=== PATIENT | female | born 1995 | race Caucasian/White ===

== ENCOUNTER 2016-09-03 20:58 | Emergency (ER) | payer OTHER, BC ==
--- NOTE | 2016-09-03 22:09 | RAD ---
INDICATION: Headache since hitting head on cabinet 3 nights earlier. COMPARISON: None. TECHNIQUE: Contiguous axial sections of the brain were obtained from the skull base to the vertex without contrast. FINDINGS: Incidental note is made of a septum pellucidum cavum and does not appear to cause any obstructive effect of the anterior horns of the ventricles. Otherwise the ventricles, cisterns and sulci are within normal limits. The lester-white matter differentiation is adequately maintained and there is no sulcal effacement. No significant focal abnormality or mass effect is present. There is no evidence for intracranial hemorrhage. No significant focal osseous abnormality is present. The visualized portion of the paranasal sinuses and mastoid air cells appear clear. IMPRESSION: No CT evidence of calvarial fracture or acute intracranial hemorrhage.
--- NOTE | 2016-09-03 22:14 | ED ---
Head Injury - HPI Summary HPI Summary: 21 female presents accompanied by twin sister with complaints of intermittent headache since 08/30/16. Patient states she had nausea on that subsided earlier today however headache has not improved. She admits to some photophobia and hitting her head again today. Denies visual disturbances, nausea and vomiting. Has not taken any medications. No PMHx besides allergy to sulfites. Denies weakness, LOC and memory loss/AMS. Has however has had some trouble concentrating. Denies any ecchymosis, edema or hematomas at this time. - History Of Current Complaint Chief Complaint: EDHeadInjury Stated Complaint: HEAD INJURY-HEADACHE Time Seen by Provider: 09/03/16 21:09 Hx Obtained From: Patient Hx Last Menstrual Period: 10/21/15 Mechanism Of Injury: Blunt Trauma Onset/Duration: Started Days Ago, Traumatic, Still Present Onset of Pain: Days Severity Currently: Moderate Severity Initially: Moderate Pain Intensity: 7 Pain Scale Used: 0-10 Numeric Location of Head Injury: Diffuse Location: Diffuse Character: Throbbing, Pressure, Aching Aggravating Factor(s): Movement Alleviating Factor(s): Rest Associated Signs And Symptoms: Other: - photophobia - Allergies/Home Medications Allergies/Adverse Reactions: Allergies Allergy/AdvReac Type Severity Reaction Status Date / Time Sulfites Allergy See Comment Verified 11/13/15 20:00 PMH/Surg Hx/FS Hx/Imm Hx Endocrine/Hematology History: Denies: Hx Anticoagulant Therapy, Hx Diabetes, Hx Thyroid Disease Cardiovascular History: Denies: Hx Congestive Heart Failure, Hx Deep Vein Thrombosis, Hx Hypertension , Hx Myocardial Infarction, Hx Pacemaker/ICD Respiratory History: Reports: Hx Asthma Denies: Hx Chronic Obstructive Pulmonary Disease (COPD), Hx Lung Cancer, Hx Pneumonia, Hx Pulmonary Embolism GI History: Denies: Hx Gall Bladder Disease, Hx Gastrointestinal Bleed, Hx Ulcer, Hx Urosepsis History: Denies: Hx Kidney Stones, Hx Renal Disease Neurological History: Reports: Hx Migraine - She states that she has chronic headaches for most of her life. Denies: Hx Dementia, Hx Seizures, Hx Transient Ischemic Attacks (TIA) Psychiatric History: Reports: Hx Anxiety, Hx Depression - Surgical History Surgery Procedure, Year, and Place: n/a - Immunization History Immunizations Up to Date: Yes Infectious Disease History: No Infectious Disease History: Denies: History Other Infectious Disease, Traveled Outside the [place] in Last 30 Days - Family History Known Family History: Positive: Cardiac Disease, Hypertension, Other - Irritable bowel syndrome. - Social History Alcohol Use: None Substance Use Type: Reports: None Smoking Status (MU): Never Smoked Tobacco Review of Systems Constitutional: Negative Positive: Photophobia ENT: Negative Cardiovascular: Negative Respiratory: Negative Gastrointestinal: Negative Musculoskeletal: Negative Skin: Negative Positive: Headache All Other Systems Reviewed And Are Negative: Yes Physical Exam Triage Information Reviewed: Yes Vital Signs On Initial Exam: Initial Vitals Temp Pulse Resp BP Pulse Ox 97.2 F 92 16 134/101 96 09/03/16 21:06 09/03/16 21:06 09/03/16 21:06 09/03/16 21:06 09/03/16 21:06 Bp 120/76 re taken Vital Signs Reviewed: Yes Appearance: Positive: Well-Appearing, Pain Distress - mild-moderate Skin: Positive: Warm, Skin Color Reflects Adequate Perfusion, Dry. Negative: Cold, Cyanosis @, Pale, Erythema @ Head/Face: Positive: Normal Head/Face Inspection, Other - no raccoon eyes, battles signs or facial bone tenderness. Negative: Scalp, Cephalohematoma Eyes: Positive: Normal, EOMI, KANIKA, Conjunctiva Clear, Other: - some photophobia noted ENT: Positive: Normal ENT inspection, Hearing grossly normal, Pharynx normal, TMs normal Neck: Positive: Supple, Nontender Respiratory/Lung Sounds: Positive: Clear to Auscultation, Breath Sounds Present. Negative: Rales, Rhonchi, Wheezes Cardiovascular: Positive: Normal, RRR, Pulses are Symmetrical in both Upper and Lower Extremities. Negative: Murmur, Rub Abdomen Description: Positive: Nontender, Soft Bowel Sounds: Positive: Present Musculoskeletal: Positive: Normal, Strength/ROM Intact. Negative: Interruption @, Pain @ Neurological: Positive: Normal - memory and concentration intact, Sensory/Motor Intact, Alert, Oriented to Person Place, Time, CN Intact II-III, Reflexes Intact , NV Bundle Intact Distally, Normal Gait, Facial Symmetry, Speech Normal Psychiatric: Positive: Affect/Mood Appropriate - [place] Coma Scale Best Eye Response: 4 - Spontaneous Best Motor Response: 6 - Obeys Commands Best Verbal Response: 5 - Oriented Coma Scale Total: 14 Diagnostics - Vital Signs Vital Signs Temp Pulse Resp BP Pulse Ox 09/03/16 21:13 97.2 F 92 16 134/101 96 09/03/16 21:06 97.2 F 92 16 134/101 96 - Laboratory Lab Statement: Any lab studies that have been ordered have been reviewed, and results considered in the medical decision making process. - CT brain wo CT Interpretation: No Acute Changes - No CT evidence of calvarial fracture or acute intracranial hemorrhage. CT Interpretation Completed By: Radiologist Re-Evaluation - Re-Evaluation First Eval Re-Evaluation Time: 00:20 Change: Improved - had improvement after naproxen Head Injury Course/Dx Course Of Treatment: given naproxen for pain and had relief. CT brain obtained and negative. Due to patient HPI, PE finding and JOHANNA appears patient probably sustained a mild concussion. Continue rest, fluids and NSAIDs. Refrain from physical activity. Re-evaluation and follow up PCP. AWare of worsening signs and symptoms and educated on post concussive syndrome. - Diagnoses Differential Diagnosis/HQI/PQRI: Concussion Without LOC, Contusion, Hematoma, Skull Fracture, Other - headache, head injury Provider Diagnoses: Concussion without loss of consciousness, Headache, Head injury due to trauma Discharge - Discharge Plan Condition: Stable Disposition: HOME Prescriptions: Naproxen TAB* [Naprosyn 375 mg TAB*] 375 mg PO Q8H #25 tab Patient Education Materials: Concussion (ED), Head Injury (ED), Post Concussion Syndrome (ED) Forms: *Work Release Referrals: [facility] [place] [facility]FERR[facility] [Outside] Guevara Gonzales MD [Medical Doctor] - No Primary Care Phys,NOPCP [Primary Care Provider] - Additional Instructions: Take prescribed medication starting tomorrow as directed to help with pain and inflammation. Take with food. Rest, drink plenty of fluids. Avoid high stimulating and light stimulating activities that require a lot of concentration. Allow your brain to rest. Refrain from physical activity until cleared by primary care provider/second evaluation. Follow up with PCP and have second evaluation in order to return to work. Neurologist if symptoms persist or new symptoms develop after 4 weeks.
[2016-09-03] MEDS ORDERED: Ketorolac INJ* 60 MG/2 ML VIAL IM ONE ×2 (22:33→22:38)
[2016-09-03] MEDS ORDERED: Naproxen TAB* 250 MG PO ONE (23:53)
[2016-09-04 00:17] VITALS: BP 120/76
== END 2016-09-04 00:17 | disposition home or self-care (01) ==
LOC: ED 20:58
DX: S06.0X0A Concussion without loss of consciousness, initial encounter (principal); S09.90XA Unspecified injury of head, initial encounter; R51 Headache; X58.XXXA Exposure to other specified factors, initial encounter; Y93.9 Activity, unspecified; Y92.9 Unspecified place or not applicable
CPT/HCPCS: 70450; 96372; 99282; A9270-GY; J1885

== ENCOUNTER 2016-10-31 16:49 | Emergency (ER) | payer BC, OTHER ==
[2016-10-31] MEDS ORDERED: Ondansetron INJ* 2 MG/ML VIAL IV ONE (19:41)
[2016-10-31] MEDS ORDERED: Ketorolac INJ* 30 MG/ML 1 ML VIAL IV ONE (19:41)
[2016-10-31] MEDS ORDERED: NS 0.9% 1000 ML* 2,000 ML IV ONE (19:41)
[2016-10-31 20:24] LABS: Hematocrit 39 % (35-47); Hemoglobin 12.9 g/dl (12.0-16.0); Mean Corpuscular HGB Conc 33 g/dl (31-36); Mean Corpuscular Hemoglobin 28 pg (27-31); Mean Corpuscular Volume 85 fL (80-97); Mean Platelet Volume 8 um3 (7.4-10.4); Red Blood Count 4.62 10^6/ul (4.0-5.4); Red Cell Distribution Width 14 % (10.5-15); White Blood Count 7.9 10^3/ul (3.5-10.8)
[2016-10-31 20:39] LABS: ALT 23 U/L (7-52); AST 19 U/L (13-39); Albumin 3.8 g/dL (3.2-5.2); Alkaline Phosphatase 72 U/L (34-104); Anion Gap 8 mmol/L (2-11); BUN/Creatinine Ratio 19.5 (8-20); Blood Urea Nitrogen 15 mg/dL (6-24); C Reactive Protein 16.33 mg/L (< 5.00); CO2 Carbon Dioxide 27 mmol/L (22-32); Chloride 101 mmol/L (101-111); EGFR African American 120.6 (>60); EGFR Non-African American 93.7 (>60); Globulin 3.3 g/dL (2-4); Glucose 91 mg/dL (70-100); Lipase 24 U/L (11.0-82.0); Potassium 3.8 mmol/L (3.5-5.0); Sodium 136 mmol/L (133-145); Total Protein 7.1 g/dL (6.4-8.9)
[2016-10-31] MEDS ORDERED: Iohexol 300* (CONTRAST) 10 ML SDV IV ONE (21:12)
--- NOTE | 2016-10-31 21:51 | RAD ---
INDICATION: Mid abdominal pain, chronic constipation and blood in the stool. COMPARISON: Correlation is made with a prior KUB series from November 02, 2015. TECHNIQUE: A CT scan of the abdomen and pelvis was performed with intravenous and oral contrast following intravenous injection of 109 ml of Omnipaque 300 nonionic contrast. Contiguous axial sections were obtained from the lung bases through the symphysis pubis. Images were reconstructed in the coronal and sagittal planes. FINDINGS: The lung bases are clear. No pleural effusion is present. The liver and spleen are within normal limits in size without significant focal abnormality. No calcified gallstones are seen. The pancreas appears to be within normal limits in size. The kidneys and adrenal glands are normal in size. No hydronephrosis is seen. No significant focal renal abnormality is seen. The aorta is normal in caliber and demonstrates homogeneous contrast opacification. No significant enlarged retroperitoneal lymph nodes are seen. The stomach, small and large bowel appear nondistended. The appendix is within normal limits. There is a [id number] amount retained stool present within the transverse and ascending colon. There is no evidence for diverticulitis or colitis. The uterus is anteverted and normal in size. No free intraperitoneal air or fluid is seen. No significant focal osseous abnormality is seen. IMPRESSION: NO EVIDENCE FOR ACUTE FINDING OR CAUSE FOR THE PATIENT'S ABDOMINAL PAIN IS SEEN.
[2016-10-31 22:01] LABS: Urine Bilirubin Negative (Negative); Urine Glucose Negative (Negative); Urine Nitrite Negative (Negative)
[2016-10-31] MEDS ORDERED: Magnesium CITRATE* 300 ML BTL PO ONE (23:45)
[2016-11-01 00:18] VITALS: BP 128/75
--- NOTE | 2016-11-01 06:11 | ED ---
Declan Simons Nilda, scribed for Jeremy Montana MD on 10/31/16 at 2002 . Abdominal Pain/Female - HPI Summary HPI Summary: This patient is a 21 year old F presenting to [facility] with a chief complaint of diarrhea for the past 2 weeks. The CC is described as thin, watery stool with mucous. Blood was also found in the stools 2 days ago. The patient rates the abdominal pain 2/10 in severity that spikes to a 9/10 in severity during BM. Symptoms alleviated by nothing. Patient reports headache (6/10 in severity), nausea, and burning sensation during BM. Patient denies chills, burning with urination, and dehydration. Negative for abdominal PSHx. Patient has been seen at [facility] during previous abdominal issues. LNMP was a week ago. No concern for STI. PMHx of waxing and waning abdominal pain for a year and half. - History of Current Complaint Chief Complaint: EDAbdPain Stated Complaint: ABD PAIN Time Seen by Provider: 10/31/16 19:26 Hx Obtained From: Patient Hx Last Menstrual Period: 10/21/15 Onset/Duration: Gradual Onset, Lasting Weeks - Diarrhea began 2 weeks ago. Chronic abdominal pain and constipation for 1.5 years., Still Present, Worse Since - 2 weeks ago Severity Initially: Mild Severity Currently: Mild Pain Intensity: 2 - During BM pain severity 9/10. Pain Scale Used: 0-10 Numeric Location: Diffuse Radiates: No Character: Burning Alleviating Factor(s): Nothing Associated Signs and Symptoms: Positive: Blood in Stool, Nausea, Diarrhea Allergies/Adverse Reactions: Allergies Allergy/AdvReac Type Severity Reaction Status Date / Time Sulfites Allergy See Comment Verified 11/13/15 20:00 PMH/Surg Hx/FS Hx/Imm Hx Endocrine/Hematology History: Denies: Hx Anticoagulant Therapy, Hx Diabetes, Hx Thyroid Disease Cardiovascular History: Denies: Hx Congestive Heart Failure, Hx Deep Vein Thrombosis, Hx Hypertension , Hx Myocardial Infarction, Hx Pacemaker/ICD Respiratory History: Reports: Hx Asthma Denies: Hx Chronic Obstructive Pulmonary Disease (COPD), Hx Lung Cancer, Hx Pneumonia, Hx Pulmonary Embolism GI History: Denies: Hx Gall Bladder Disease, Hx Gastrointestinal Bleed, Hx Ulcer, Hx Urosepsis History: Denies: Hx Kidney Stones, Hx Renal Disease Neurological History: Reports: Hx Migraine - She states that she has chronic headaches for most of her life. Denies: Hx Dementia, Hx Seizures, Hx Transient Ischemic Attacks (TIA) Psychiatric History: Reports: Hx Anxiety, Hx Depression - Surgical History Surgery Procedure, Year, and Place: n/a Infectious Disease History: No Infectious Disease History: Denies: History Other Infectious Disease, Traveled Outside the [place] in Last 30 Days - Family History Known Family History: Positive: Cardiac Disease, Hypertension, Other - Irritable bowel syndrome. - Social History Alcohol Use: Rare Substance Use Type: Reports: None Smoking Status (MU): Never Smoked Tobacco Review of Systems Positive: Other - negative dehydration. Negative: Chills Positive: Abdominal Pain, Diarrhea - burning sensation from wet stool, thin, watery with mucous. , Nausea, Other - blood in stool Negative: burning Positive: Headache All Other Systems Reviewed And Are Negative: Yes Physical Exam - Summary Physical Exam Summary: General: well-appearing, mild pain distress Skin: warm, color reflects adequate perfusion, dry Head: normal Eyes: EOMI, KANIKA ENT: normal, moist mucosa Neck: supple, nontender Respiratory: CTA, breath sounds present Cardiovascular: RRR Abdomen: soft, tender across mid-abdomen Bowel: hypoactive bowel sounds Musculoskeletal: normal, strength/ROM intact Neurological: normal, sensory/motor intact, A&O x3 Psychological: affect/mood appropriate Triage Information Reviewed: Yes Vital Signs On Initial Exam: Initial Vitals Temp Pulse Resp BP Pulse Ox 98.2 F 95 17 132/92 97 10/31/16 17:21 10/31/16 17:21 10/31/16 17:21 10/31/16 17:21 10/31/16 17:21 Vital Signs Reviewed: Yes - [place] Coma Scale Coma Scale Total: 15 Diagnostics - Vital Signs Vital Signs Temp Pulse Resp BP Pulse Ox 10/31/16 19:10 88 97 10/31/16 19:09 89 18 129/80 97 10/31/16 17:21 98.2 F 95 17 132/92 97 - Laboratory Lab Results: Lab Results 10/31/16 10/31/16 10/31/16 Range/Units 20:13 20:13 20:13 WBC 7.9 (3.5-10.8) 10^3/ul RBC 4.62 (4.0-5.4) 10^6/ul Hgb 12.9 (12.0-16.0) g/dl Hct 39 (35-47) % MCV 85 (80-97) fL MCH 28 (27-31) pg MCHC 33 (31-36) g/dl RDW 14 (10.5-15) % Plt Count 249 (150-450) 10^3/ul MPV 8 (7.4-10.4) um3 Neut % (Auto) 61.0 (38-83) % Lymph % (Auto) 30.6 (25-47) % [place] % (Auto) 6.6 (1-9) % Eos % (Auto) 1.3 (0-6) % Baso % (Auto) 0.5 (0-2) % Absolute Neuts (auto) 4.8 (1.5-7.7) 10^3/ul Absolute Lymphs (auto) 2.4 (1.0-4.8) 10^3/ul Absolute Monos (auto) 0.5 (0-0.8) 10^3/ul Absolute Eos (auto) 0.1 (0-0.6) 10^3/ul Absolute Basos (auto) 0 (0-0.2) 10^3/ul Absolute Nucleated RBC 0 10^3/ul Nucleated RBC % 0 INR (Anticoag Therapy) 0.91 (0.89-1.11) APTT 29.2 (26.0-36.3) seconds Sodium 136 (133-145) mmol/L Potassium 3.8 (3.5-5.0) mmol/L Chloride 101 (101-111) mmol/L Carbon Dioxide 27 (22-32) mmol/L Anion Gap 8 (2-11) mmol/L BUN 15 (6-24) mg/dL Creatinine 0.77 (0.51-0.95) mg/dL Est GFR ( Amer) 120.6 (>60) Est GFR (Non-Af Amer) 93.7 (>60) BUN/Creatinine Ratio 19.5 (8-20) Glucose 91 (70-100) mg/dL Lactic Acid (0.5-2.0) mmol/L Calcium 9.0 (8.6-10.3) mg/dL Total Bilirubin 0.30 (0.2-1.0) mg/dL AST 19 (13-39) U/L ALT 23 (7-52) U/L Alkaline Phosphatase 72 (34-104) U/L C-Reactive Protein 16.33 H (< 5.00) mg/L Total Protein 7.1 (6.4-8.9) g/dL Albumin 3.8 (3.2-5.2) g/dL Globulin 3.3 (2-4) g/dL Albumin/Globulin Ratio 1.2 (1-3) Lipase 24 (11.0-82.0) U/L Beta HCG, Quant < 0.60 mIU/mL Urine Color Urine Appearance Urine pH (5-9) Ur Specific [place] (1.010-1.030) Urine Protein (Negative) Urine Ketones (Negative) Urine Blood (Negative) Urine Nitrate (Negative) Urine Bilirubin (Negative) Urine Urobilinogen (Negative) Ur Leukocyte Esterase (Negative) Urine Glucose (Negative) 10/31/16 10/31/16 Range/Units 20:13 21:49 WBC (3.5-10.8) 10^3/ul RBC (4.0-5.4) 10^6/ul Hgb (12.0-16.0) g/dl Hct (35-47) % MCV (80-97) fL MCH (27-31) pg MCHC (31-36) g/dl RDW (10.5-15) % Plt Count (150-450) 10^3/ul MPV (7.4-10.4) um3 Neut % (Auto) (38-83) % Lymph % (Auto) (25-47) % [place] % (Auto) (1-9) % Eos % (Auto) (0-6) % Baso % (Auto) (0-2) % Absolute Neuts (auto) (1.5-7.7) 10^3/ul Absolute Lymphs (auto) (1.0-4.8) 10^3/ul Absolute Monos (auto) (0-0.8) 10^3/ul Absolute Eos (auto) (0-0.6) 10^3/ul Absolute Basos (auto) (0-0.2) 10^3/ul Absolute Nucleated RBC 10^3/ul Nucleated RBC % INR (Anticoag Therapy) (0.89-1.11) APTT (26.0-36.3) seconds Sodium (133-145) mmol/L Potassium (3.5-5.0) mmol/L Chloride (101-111) mmol/L Carbon Dioxide (22-32) mmol/L Anion Gap (2-11) mmol/L BUN (6-24) mg/dL Creatinine (0.51-0.95) mg/dL Est GFR ( Amer) (>60) Est GFR (Non-Af Amer) (>60) BUN/Creatinine Ratio (8-20) Glucose (70-100) mg/dL Lactic Acid 0.8 (0.5-2.0) mmol/L Calcium (8.6-10.3) mg/dL Total Bilirubin (0.2-1.0) mg/dL AST (13-39) U/L ALT (7-52) U/L Alkaline Phosphatase (34-104) U/L C-Reactive Protein (< 5.00) mg/L Total Protein (6.4-8.9) g/dL Albumin (3.2-5.2) g/dL Globulin (2-4) g/dL Albumin/Globulin Ratio (1-3) Lipase (11.0-82.0) U/L Beta HCG, Quant mIU/mL Urine Color Yellow Urine Appearance Clear Urine pH 6.0 (5-9) Ur Specific [place] 1.033 H (1.010-1.030) Urine Protein Negative (Negative) Urine Ketones Negative (Negative) Urine Blood Negative (Negative) Urine Nitrate Negative (Negative) Urine Bilirubin Negative (Negative) Urine Urobilinogen Negative (Negative) Ur Leukocyte Esterase Negative (Negative) Urine Glucose Negative (Negative) Result Diagrams: 10/31/16 20:13 10/31/16 20:13 Lab Statement: Any lab studies that have been ordered have been reviewed, and results considered in the medical decision making process. - CT Abdominal/Pelvis CT Interpretation: No Acute Changes CT Interpretation Completed By: Radiologist - IMPRESSION: NO EVIDENCE FOR ACUTE FINDING OR CAUSE FOR THE PATIENT'S ABDOMINAL PAIN IS SEEN. ED physician has reviewed this radiology report and agrees. Re-Evaluation - Re-Evaluation First Eval Re-Evaluation Time: 23:40 Change: Improved Comment: Discussed results with the pt. Abdominal Pain Fem Course/Dx - Course Course Of Treatment: DISCUSSED RESULTS WITH PATIENT. WILL F/U WITH PMD AND GI. - Diagnoses Provider Diagnoses: Abdominal pain, Constipation Discharge - Discharge Plan Condition: Stable Disposition: HOME Patient Education Materials: Constipation (ED), Abdominal Pain (ED) Forms: *Work Release Referrals: [facility] [Provider Group] [facility] [place] [facility] [Outside] No Primary Care Phys,NOPCP [Primary Care Provider] - Additional Instructions: FOLLOW UP WITH YOUR DOCTOR. RETURN TO THE EMERGENCY DEPARTMENT FOR ANY WORSENING OF YOUR CONDITION; PAIN, FEVER, YOU FEEL ILL OR QUESTIONS OR CONCERNS. The documentation as recorded by the Declan waldrop Nilda accurately reflects the service I personally performed and the decisions made by me, Jeremy Montana MD.
== END 2016-11-01 00:26 | disposition home or self-care (01) ==
LOC: ED 16:49
DX: R10.9 Unspecified abdominal pain (principal); K59.00 Constipation, unspecified; R51 Headache; R19.7 Diarrhea, unspecified
CPT/HCPCS: 36415; 74177; 80053; 81003; 83605; 83690; 84702; 85025; 85610; 85730; 86140; 96374; 96375; 99283; A9270-GY; J1885; J2405; Q9967

== ENCOUNTER 2016-11-14 16:53 | Emergency (ER) | payer BC ==
--- NOTE | 2016-11-14 18:36 | RAD ---
Indication: Pain between the second and third digits of the LEFT foot following injury one month ago. Comparison: No relevant prior exams available on the [facility] [place] for comparison. Technique: AP, lateral, and oblique views LEFT foot. Report: Negative for fracture, stigmata of stress reaction, articular malalignment, or appreciable arthropathic change. Unremarkable soft tissue contours. IMPRESSION: Negative exam.
--- NOTE | 2016-11-14 19:08 | ED ---
Lower Extremity - HPI Summary HPI Summary: 21 female presents to ED with complaints of left foot pain that has been ongoing and worsening for the past month. Patient has not taken any medication for the discomfort. States the pain is worse and only really there when she is bearing weight and walking on it. Patient has not rested on it and walks frequently. States she "jammed it into a chair leg" 1 month ago, in between 4/ 5th toes and it has been worsening every since. Patient tried rest, ice and elevation without relief. Massage also hurt and makes pain worse. She was concerned for fracture. No other complaints at this time. No PMHx. No other injuries, obvious bruising, edema or erythema. Denies numbness/tingling. - History of Current Complaint Chief Complaint: EDExtremityLower Stated Complaint: LT FOOT PAIN/CONSISTANT FOR A MONTH Time Seen by Provider: 11/14/16 17:38 Hx Obtained From: Patient Hx Last Menstrual Period: 10/21/15 Mechanism Of Injury: Direct Blow Onset of Pain: Immediate, Post Accident Onset/Duration: Worse Since Severity Initially: Mild Severity Currently: Moderate Pain Intensity: 5 Pain Scale Used: 0-10 Numeric Timing: Intermittent - with walking and bearing weight Location: Is Discrete @ - left lateral foot beginning at 4/5th toes Character Of Pain: Sharp, Aching, Throbbing Associated Signs And Symptoms: Positive: Negative Aggravating Factor(s): Standing, Ambulation, Weight Bearing Alleviating Factor(s): Rest Able to Bear Weight: Yes - however causes pain - Allergies/Home Medications Allergies/Adverse Reactions: Allergies Allergy/AdvReac Type Severity Reaction Status Date / Time Sulfites Allergy See Comment Verified 11/13/15 20:00 PMH/Surg Hx/FS Hx/Imm Hx Endocrine/Hematology History: Denies: Hx Anticoagulant Therapy, Hx Diabetes, Hx Thyroid Disease Cardiovascular History: Denies: Hx Congestive Heart Failure, Hx Deep Vein Thrombosis, Hx Hypertension , Hx Myocardial Infarction, Hx Pacemaker/ICD Respiratory History: Reports: Hx Asthma Denies: Hx Chronic Obstructive Pulmonary Disease (COPD), Hx Lung Cancer, Hx Pneumonia, Hx Pulmonary Embolism GI History: Denies: Hx Gall Bladder Disease, Hx Gastrointestinal Bleed, Hx Ulcer, Hx Urosepsis History: Denies: Hx Kidney Stones, Hx Renal Disease Neurological History: Reports: Hx Migraine - She states that she has chronic headaches for most of her life. Denies: Hx Dementia, Hx Seizures, Hx Transient Ischemic Attacks (TIA) Psychiatric History: Reports: Hx Anxiety, Hx Depression - Surgical History Surgery Procedure, Year, and Place: n/a Infectious Disease History: Yes Infectious Disease History: Denies: History Other Infectious Disease, Traveled Outside the [place] in Last 30 Days - Family History Known Family History: Positive: Cardiac Disease, Hypertension, Other - Irritable bowel syndrome. - Social History Alcohol Use: Rare Substance Use Type: Reports: None Smoking Status (MU): Never Smoked Tobacco Review of Systems Constitutional: Negative Cardiovascular: Negative Respiratory: Negative Positive: Arthralgia, Myalgia - left foot Skin: Negative Neurological: Negative All Other Systems Reviewed And Are Negative: Yes Physical Exam Triage Information Reviewed: Yes Vital Signs On Initial Exam: Initial Vitals Temp Pulse Resp BP Pulse Ox 98.3 F 92 18 152/78 98 11/14/16 17:17 10 17:17 10 17:17 11/14/16 17:17 11/14/16 17:17 Vital Signs Reviewed: Yes Appearance: Positive: Well-Appearing, No Pain Distress, Well-Nourished Skin: Positive: Warm, Skin Color Reflects Adequate Perfusion, Dry, Other - no erythema, crepitus, step off or obvious deformity, no noteable ecchymosis or edema noted at this time. Negative: Cold, Numb, Cyanosis @, Diaphoretic, Pale, Erythema @ Head/Face: Positive: Normal Head/Face Inspection Eyes: Positive: Conjunctiva Clear ENT: Positive: Hearing grossly normal Neck: Positive: Supple, Nontender Respiratory/Lung Sounds: Positive: Clear to Auscultation, Breath Sounds Present. Negative: Rales, Rhonchi, Wheezes Cardiovascular: Positive: Normal, RRR, Pulses are Symmetrical in both Upper and Lower Extremities - 2+ pedal b/l. Negative: Murmur, Rub Musculoskeletal: Positive: Normal, Strength/ROM Intact, Pain @ - with weight bearing and walking on lateral left foot beginning at 4/5 toes. no pain on palpation Neurological: Positive: Normal, Sensory/Motor Intact - sensation normal and intact. cap refill <2 seconds, Alert, Oriented to Person Place, Time, Reflexes Intact, NV Bundle Intact Distally, Normal Gait - limping and favoring right side due to pain of left foot Psychiatric: Positive: Affect/Mood Appropriate - [place] Coma Scale Coma Scale Total: 15 Diagnostics - Vital Signs Vital Signs Temp Pulse Resp BP Pulse Ox 11/14/16 17:17 98.3 F 92 18 152/78 98 - Laboratory Lab Statement: Any lab studies that have been ordered have been reviewed, and results considered in the medical decision making process. - Radiology left foot Xray Interpretation: No Acute Changes - Negative for fracture, stigmata of stress reaction, articular malalignment, or appreciable arthropathic change. Unremarkable soft tissue contours. Radiology Interpretation Completed By: Radiologist Lower Extremity Course/Dx - Course Course Of Treatment: appears patient is suffering from foot sprain/contusion. xray obtained and negative. given ibuprofen. told to rest and avoid overuse as she has been walking a lot probably worsening injury and not allowing to heal. continue NSAID, RICE. Follow up with PCP/ortho. CAM boot and linwood bandage applied. Aware of worsening signs and symptoms to watch out for. No other emergent concern at this time. All questions answered, agrees and understands plan. - Diagnoses Differential Diagnosis/HQI/PQRI: Positive: Arthritis, Contusion, Dislocation, Fracture (Closed), Sprain, Strain, Tendonitis Provider Diagnoses: Sprain of left foot, Contusion of left foot Discharge - Discharge Plan Condition: Stable Disposition: HOME Patient Education Materials: Foot Contusion (ED), Foot Sprain (ED) Referrals: Hannah Castro MD [Primary Care Provider] - Additional Instructions: Continue taking ibuprofen. With food. While symptoms persist, as needed. Rest and avoid walking on foot until symptoms improve, atleast 1 week. Wear cam boot and linwood bandage. Ice and elevate. Try heat during the day. Follow up with PCP/Ortho if symptoms persist, worsen or do not improve.
[2016-11-14] MEDS ORDERED: Ibuprofen TAB* 600 MG PO ONE (19:34)
[2016-11-14 19:59] VITALS: BP 144/76
== END 2016-11-14 19:59 | disposition home or self-care (01) ==
LOC: ED 16:53
DX: S93.602A Unspecified sprain of left foot, initial encounter (principal); M79.672 Pain in left foot; S90.32XA Contusion of left foot, initial encounter; W22.8XXA Striking against or struck by other objects, initial encounter; Y93.9 Activity, unspecified; Y92.9 Unspecified place or not applicable
CPT/HCPCS: 99282; A9270-GY

== ENCOUNTER 2017-01-03 12:02 | Emergency (ER) | payer BC, MEDICAID ==
[2017-01-03] MEDS ORDERED: Pantoprazole IV* 40 MG IV ONE (12:35)
[2017-01-03] MEDS ORDERED: Ondansetron INJ* 2 MG/ML VIAL IV ONE (12:35)
[2017-01-03] MEDS ORDERED: Al Hydrox/Mg Hydrox/Simet LIQ* 30 ML UDC PO ONE (12:35)
--- NOTE | 2017-01-03 13:09 | ED ---
Abdominal Pain/Female - HPI Summary HPI Summary: Patient is an otherwise healthy F who presents with 2 days abdominal pain which is generally centered mid-abdomen but often will radiate and move, N/V and constipation x several weeks. She states she is severely dehydrated and hungry as she has not been able to keep anything down. Last BM this morning but very small and previous to that it had been several days. She has had GI complaints in the past with the most recent 2 months ago with diarrhea. She was seen here and CT ordered which showed no acute findings. Denies weakness, [place], stiffness, sensitivity to light, - History of Current Complaint Chief Complaint: EDAbdPain Stated Complaint: VOMITING Time Seen by Provider: 01/03/17 12:27 Hx Obtained From: Patient Hx Last Menstrual Period: 10/21/15 ?: No Onset/Duration: Sudden Onset Timing: Constant Severity Initially: Moderate Severity Currently: Moderate Pain Intensity: 6 Pain Scale Used: 0-10 Numeric Location: Umbilical Radiates: No Character: Cramping Aggravating Factor(s): Food Associated Signs and Symptoms: Positive: Nausea, Vomiting - Risk Factors Ectopic Risk Factor: Negative Ovarian Torsion Risk Factor: Reproductive Age Allergies/Adverse Reactions: Allergies Allergy/AdvReac Type Severity Reaction Status Date / Time Sulfites Allergy See Comment Verified 11/13/15 20:00 PMH/Surg Hx/FS Hx/Imm Hx Previously Healthy: Yes Endocrine/Hematology History: Denies: Hx Anticoagulant Therapy, Hx Diabetes, Hx Thyroid Disease Cardiovascular History: Denies: Hx Congestive Heart Failure, Hx Deep Vein Thrombosis, Hx Hypertension , Hx Myocardial Infarction, Hx Pacemaker/ICD Respiratory History: Reports: Hx Asthma Denies: Hx Chronic Obstructive Pulmonary Disease (COPD), Hx Lung Cancer, Hx Pneumonia, Hx Pulmonary Embolism GI History: Denies: Hx Gall Bladder Disease, Hx Gastrointestinal Bleed, Hx Ulcer, Hx Urosepsis History: Denies: Hx Kidney Stones, Hx Renal Disease Neurological History: Reports: Hx Migraine - She states that she has chronic headaches for most of her life. Denies: Hx Dementia, Hx Seizures, Hx Transient Ischemic Attacks (TIA) Psychiatric History: Reports: Hx Anxiety, Hx Depression - Surgical History Surgery Procedure, Year, and Place: n/a - Immunization History Hx Pertussis Vaccination: No Immunizations Up to Date: Unable to Obtain/Confirm Infectious Disease History: No Infectious Disease History: Denies: History Other Infectious Disease, Traveled Outside the [place] in Last 30 Days - Family History Known Family History: Positive: Cardiac Disease, Hypertension, Other - Irritable bowel syndrome. - Social History Occupation: Employed Full-time Lives: With Family Alcohol Use: Rare Hx Substance Use: No Substance Use Type: Reports: None Hx Tobacco Use: No Smoking Status (MU): Never Smoked Tobacco Review of Systems Constitutional: Negative Negative: Fever, Chills, Fatigue Eyes: Negative Cardiovascular: Negative Positive: Abdominal Pain, Vomiting, Nausea Genitourinary: Negative Positive: no symptoms reported, see HPI Musculoskeletal: Negative Neurological: Negative Psychological: Normal All Other Systems Reviewed And Are Negative: Yes Physical Exam Triage Information Reviewed: Yes Vital Signs On Initial Exam: Initial Vitals Temp Pulse Resp BP Pulse Ox 98.2 F 84 16 143/87 99 01/03/17 12:04 01/03/17 12:04 01/03/17 12:04 01/03/17 12:04 01/03/17 12:04 Vital Signs Reviewed: Yes Appearance: Positive: Ill-Appearing Skin: Positive: Dry Head/Face: Positive: Normal Head/Face Inspection Eyes: Positive: EOMI, KANIKA, Conjunctiva Clear Neck: Positive: Supple, No Lymphadenopathy Respiratory/Lung Sounds: Positive: Clear to Auscultation, Breath Sounds Present Cardiovascular: Positive: RRR, Pulses are Symmetrical in both Upper and Lower Extremities Abdomen Description: Positive: Other: - tenderness to just superior to the umbilicus without hernia Bowel Sounds: Positive: Present Musculoskeletal: Positive: Strength/ROM Intact Neurological: Positive: Speech Normal Psychiatric: Positive: Normal Diagnostics - Vital Signs Vital Signs Temp Pulse Resp BP Pulse Ox 01/03/17 12:04 98.2 F 84 16 143/87 99 - Laboratory Result Diagrams: 01/03/17 13:15 01/03/17 13:15 Lab Statement: Any lab studies that have been ordered have been reviewed, and results considered in the medical decision making process. Abdominal Pain Fem Course/Dx - Course Course Of Treatment: During the course of treatment, patient is given 2L fluids , zofran, maalox 30ml and famotidine. negative. Labs WNL. IMPRESSION : Normal ultrasound of the right upper quadrant. IMPRESSION: Negative for free air or evidence for bowel obstruction. No radiographic. stigmata of acute abdominal pelvic pathology. Correlate with clinical assessment. She is given compazine with relief. Discussed treatment options. No significant findings on appendix, GB and abdominal xray. Likely viral illness causing dehydration and constipation. She is given compazine rx and maalox. Strick return precautions. - Diagnoses Differential Diagnosis: Positive: Appendicitis, Constipation Provider Diagnoses: Nausea & vomiting Discharge - Discharge Plan Condition: Stable Disposition: HOME Prescriptions: Al Hydrox/Mg Hydrox/Simet LIQ* [Maalox Plus*] 30 ml PO Q4H PRN #1 udc PRN Reason: Pain Prochlorperazine TAB* [Compazine Tab*] 10 mg PO Q6H PRN #12 tab PRN Reason: Nausea Referrals: Hannah Castro MD [Primary Care Provider] -
--- NOTE | 2017-01-03 13:14 | RAD ---
Indication: Crampy abdominal pain. Vomiting. Comparison: October 31, 2016 CT. Technique: Supine and upright views of the abdomen. Report: No radiographic evidence for free air. Unremarkable bowel gas pattern. Moderate stool in the colon without significant rectal distension. Negative for suspicious calcifications. Unremarkable soft tissue contours. IMPRESSION: Negative for free air or evidence for bowel obstruction. No radiographic stigmata of acute abdominal pelvic pathology. Correlate with clinical assessment.
[2017-01-03 13:24] LABS: Hematocrit 40 % (35-47); Hemoglobin 13.2 g/dl (12.0-16.0); Mean Corpuscular HGB Conc 33 g/dl (31-36); Mean Corpuscular Hemoglobin 28 pg (27-31); Mean Corpuscular Volume 84 fL (80-97); Mean Platelet Volume 8 um3 (7.4-10.4); Red Blood Count 4.73 10^6/ul (4.0-5.4); Red Cell Distribution Width 13 % (10.5-15); White Blood Count 10.5 10^3/ul (3.5-10.8)
[2017-01-03 13:46] LABS: ALT 13 U/L (7-52); AST 13 U/L (13-39); Albumin 3.6 g/dL (3.2-5.2); Alkaline Phosphatase 62 U/L (34-104); Amylase 30 U/L (29-103); Anion Gap 7 mmol/L (2-11); BUN/Creatinine Ratio 18.5 (8-20); Blood Urea Nitrogen 17 mg/dL (6-24); C Reactive Protein 22.02 mg/L (< 5.00); CO2 Carbon Dioxide 29 mmol/L (22-32); Calcium 9.1 mg/dL (8.6-10.3); Chloride 101 mmol/L (101-111); Creatine Kinase 42 U/L (10-223); EGFR African American 98.2 (>60); EGFR Non-African American 76.3 (>60); Globulin 3.1 g/dL (2-4); Glucose 99 mg/dL (70-100); Lipase 20 U/L (11.0-82.0); Magnesium 1.9 mg/dL (1.9-2.7); Potassium 3.7 mmol/L (3.5-5.0); Sodium 137 mmol/L (133-145); Total Protein 6.7 g/dL (6.4-8.9)
--- NOTE | 2017-01-03 13:50 | RAD ---
HISTORY: Abdominal pain x3 days COMPARISONS: None TECHNIQUE: Multiple transverse and longitudinal ultrasound images were obtained of the right upper quadrant. FINDINGS: LIVER: The liver is normal in dimensions and echogenicity. Normal hepatic and portal venous blood flow is duplicated with color flow imaging. There is no gross intrahepatic biliary duct dilatation. GALLBLADDER AND EXTRAHEPATIC BILIARY DUCT: The gallbladder is normal in appearance without intraluminal stones or other soft tissue masses. There is no pericholecystic fluid or gallbladder wall thickening. The common bile duct measures a maximum diameter of 5 mm. PANCREAS: The portions of the pancreas not obscured by bowel gas are normal in appearance. RIGHT KIDNEY: The right kidney is normal in size, morphology and echogenicity. AORTA AND IVC: The visualized portions are normal in appearance and not pathologically dilated. IMPRESSION: Normal ultrasound of the right upper quadrant.
--- NOTE | 2017-01-03 13:57 | RAD ---
Indication: 3 days abdominal pain. Comparison: October 29, 2016 CT. Technique: Ultrasound of the right lower quadrant. REPORT AND IMPRESSION: Nondiagnostic exam due to nonvisualization of the appendix. No RIGHT lower quadrant free fluid or lymphadenopathy visualized. Correlate with clinical assessment and consider CT for further evaluation if deemed appropriate.
[2017-01-03] MEDS: NS 0.9% 1000 ML* 2,000 ML IV ONE (15:01)
[2017-01-03] MEDS ORDERED: PROCHLORPERAZINE INJ 5 MG/ML 2 ML VIAL IV ONE (15:08)
[2017-01-03 16:38] VITALS: BP 136/82
== END 2017-01-03 16:37 | disposition home or self-care (01) ==
LOC: ED 12:02
DX: R11.2 Nausea with vomiting, unspecified (principal)
CPT/HCPCS: 36415; 74020; 76705; 80053; 82150; 82550; 83605; 83690; 83735; 84702; 85025; 86140; 96374; 99283; A9270-GY; J0780; J2405

== ENCOUNTER 2017-05-10 15:43 | Emergency (ER) | payer BC, MEDICAID ==
[2017-05-10 15:56] VITALS: BP 143/95
--- NOTE | 2017-05-10 16:28 | UC ---
Abdominal Pain Female HPI - HPI Summary HPI Summary: Patient presents with worsening abdominal pain, rectal pain and nausea over the past 2 weeks. Patient reports this has been a chronic problem for her for over 4 years. She also is having trouble with constipation. Has some very small hard stools and a lot of pain. Denies fever. No diarrhea. She denies any rios blood per rectum. She has never seen GI for this problem. She denies any history of trauma or other possible triggering event that might have started the symptoms 4 years ago. Patient states the pain is often so bad she feels like she will pass out. - History of Current Complaint Chief Complaint: UCGI Stated Complaint: ABDOMINAL PAIN Time Seen by Provider: 05/10/17 16:01 Hx Obtained From: Patient Hx Last Menstrual Period: 10/21/15 Onset/Duration: Still Present, Other - CHRONIC FOR YEARS Timing: Constant Severity Initially: Moderate Severity Currently: Moderate Pain Intensity: 7 Pain Scale Used: 0-10 Numeric Location: Suprapubic Radiates: No Character: Cramping, Sharp Aggravating Factor(s): Movement Alleviating Factor(s): Nothing Associated Signs and Symptoms: Positive: Constipation, Blood in Stool, Nausea. Negative: Diaphoresis, Fever, Chest Pain, Back Pain, Urinary Symptoms, Decreased Appetite, Vomiting, Diarrhea Allergies/Adverse Reactions: Allergies Allergy/AdvReac Type Severity Reaction Status Date / Time sulfite Allergy Unknown Verified 05/10/17 15:57 Reaction Details Home Medications: Home Medications Amphetamine MIXED SALTS TAB* [Adderall TAB*] 15 mg PO BID 05/10/17 [History Confirmed 05/10/17] Desvenlafaxine Succinate [Pristiq] 50 mg PO DAILY 05/10/17 [History Confirmed ] metFORMIN* [Glucophage 1000 MG TAB *] 1,000 mg PO DAILY 05/10/17 [History Confirmed 05/10/17] PMH/Surg Hx/FS Hx/Imm Hx Respiratory History: Asthma Other History Of: Negative For: HIV, Hepatitis B, Hepatitis C, Anticoagulant Therapy - Surgical History Surgical History: None Surgery Procedure, Year, and Place: n/a - Family History Known Family History: Positive: Cardiac Disease, Hypertension, Other - Irritable bowel syndrome - Social History Alcohol Use: Rare Substance Use Type: None Smoking Status (MU): Never Smoked Tobacco Review of Systems Constitutional: Negative Respiratory: Negative Cardiovascular: Negative Gastrointestinal: Abdominal Pain, Nausea, Other - CONSTIPATION Genitourinary: Negative All Other Systems Reviewed And Are Negative: Yes Physical Exam Triage Information Reviewed: Yes Appearance: Well-Appearing, No Pain Distress, Well-Nourished Vital Signs: Initial Vital Signs Temp 96.8 F 05/10/17 15:52 Pulse 85 05/10/17 15:52 Resp 19 05/10/17 15:52 BP 143/95 05/10/17 15:52 Pulse Ox 100 05/10/17 15:52 Vital Signs Reviewed: Yes Eyes: Positive: Conjunctiva Clear ENT: Positive: Hearing grossly normal Neck: Positive: Supple, Nontender, No Lymphadenopathy Respiratory Exam: Normal Respiratory: Positive: Accessory muscle use Abdomen Description: Positive: Soft, Other: - TTP DIFFUSELY. NO RIGIDITY OR REBOUND. Negative: CVA Tenderness (R), CVA Tenderness (L), Distended, Guarding Bowel Sounds: Positive: Present Musculoskeletal: Positive: No Edema Neurological: Positive: Alert Psychological: Positive: Age Appropriate Behavior Skin: Negative: rashes Diagnostics - Laboratory Diagnostic Studies Completed/Ordered: FOBT POSITIVE Abd Pain Female Course/Dx - Differential Dx/Diagnosis Provider Diagnoses: 1. ABDOMINAL PAIN/RECTAL PAIN. 2. OCCULT BLOOD PER RECTUM Discharge - Sign-Out/Discharge Documenting (check all that apply): Discharge - Discharge Plan Condition: Stable Disposition: HOME Patient Education Materials: Rectal Bleeding (ED), Rectal Pain (ED) Referrals: Hannah Castro MD [Medical Doctor] - If Needed Additional Instructions: FOBT POSITIVE TODAY. FOLLOW-UP WITH GI FOR FURTHER EVALUATION OF YOUR CHRONIC ABDOMINAL/RECTAL PAIN AND OCCULT BLOOD PER RECTUM. [facility] Address: [facility] [place] [address] Go to the ED without fail if you develop rios blood per rectum, dizziness, weakness, fever, shortness of breath, worsening abdominal pain or any other concerning symptoms. - Billing Disposition and Condition Condition: STABLE Disposition: HOME
== END 2017-05-10 16:40 | disposition home or self-care (01) ==
LOC: UCEAST 15:43
DX: R10.30 Lower abdominal pain, unspecified (principal); K62.89 Other specified diseases of anus and rectum; R19.5 Other fecal abnormalities; K59.00 Constipation, unspecified; R11.0 Nausea; J45.909 Unspecified asthma, uncomplicated
CPT/HCPCS: 99211; G0463